=== PATIENT | female | born 1950 | race Caucasian/White ===

== ENCOUNTER 2022-07-28 14:17 | Emergency (ER) | payer MEDICARE, OTHER ==
[~2022-07-28] VITALS: Ht 165.1 cm; Wt 80.0 kg
[2022-07-28 16:06] VITALS: BP 229/109
[2022-07-28] MEDS ORDERED: cloNIDine 0.1 mg tablet PO ONE (16:25)
[2022-07-28] MEDS ORDERED: LISI10TA27 PO (16:44)
== END 2022-07-28 17:11 | disposition home or self-care (01) ==
LOC: ER 14:18
DX: I10 Essential (primary) hypertension (principal); Z88.8 Allergy status to other drugs, medicaments and biological substances; Z88.5 Allergy status to narcotic agent; Z79.899 Other long term (current) drug therapy
CPT/HCPCS: 99283